=== PATIENT | male | born 1945 | race Caucasian/White ===

== ENCOUNTER 2024-08-10 08:15 | Observation (INO) ==
--- NOTE | 2024-08-03 15:54 | Anesthesiology Consultation ---
Date of Service August 03, 2024 Assessment & Plan (1) Encounter for pre-operative examination: Chart Review Chart Review: Acceptable Risk for Surgery and Patient NOT seen in Pre Admission Testing -Infectious Disease screening: Per PAT nursing assessment on 08/03/24. No known infectious disease contacts in past 10 days or current infectious disease symptoms. No recent travel outside the country. History Surgery Operation Date: 08/10/24 10:00 Proposed Procedures p Laparoscopic Cholecystectomy - Sea Roper MD Height/Weight Height: 5 ft 11 in Weight: 77.111 kg Allergies Allergy/AdvReac Type Severity Reaction Status Date / Time bee venom protein (honey bee) Allergy Severe Anaphylaxis Verified 08/03/24 12:09 adhesive tape Allergy Intermediate Rash Verified 08/03/24 12:10 Iodinated Contrast Media Allergy Intermediate Rash, Hives Verified 08/03/24 12:09 shellfish derived Allergy Intermediate Rash, Hives Verified 08/03/24 12:09 tetanus toxoid, adsorbed Allergy Unknown Unknown Verified 08/03/24 12:09 milk AdvReac Intermediate Gastrointenstinal Verified 08/03/24 12:09 Upset procaine AdvReac Intermediate Nausea Verified 08/03/24 12:09 sulfamethoxazole AdvReac Unknown Unknown Verified 08/03/24 12:09 [From Sulfamethoxazole-Trimethoprim] trimethoprim AdvReac Unknown Unknown Verified 08/03/24 12:09 [From Sulfamethoxazole-Trimethoprim] Additional Notes: Procaine allergy Medications Home Medications Medication Instructions Recorded Confirmed Last Taken carboxymethylcellulose sodium 0.5 1 drp ophthalmic (eye) BID PRN Dry 07/22/24 08/03/24 Unknown % eye drops Eye(S) clobetasol 0.05 % topical cream 1 applic topical DAILY PRN Skin 07/22/24 08/03/24 Unknown Irritation fluocinonide 0.05 % topical cream 1 applic topical BID PRN Skin 07/22/24 08/03/24 Unknown Irritation hydrocortisone 0.5 % lotion 1 applic topical BID PRN Skin 07/22/24 08/03/24 Unknown Irritatoin lactase 3,000 unit tablet (Lactaid) 3,000 unit PO AC PRN Dairy 07/22/24 08/03/24 Unknown Ingestion lysine 500 mg tablet (L-Lysine) 500 mg PO DAILY 07/22/24 08/03/24 Unknown magnesium 250 mg tablet 250 mg PO DAILY 07/22/24 08/03/24 Unknown omeprazole 20 mg capsule,delayed 20 mg PO Q2D 07/22/24 08/03/24 Unknown release sertraline 100 mg tablet (Zoloft) 100 mg PO QDL 07/22/24 08/03/24 Unknown buspirone 10 mg tablet 10 mg PO HS 08/03/24 08/03/24 Unknown multivitamin 1 tab PO QAM 08/03/24 08/03/24 Unknown nortriptyline 10 mg capsule 10 mg PO HS 08/03/24 08/03/24 Unknown vitamins A,C,Y-qiew-skguta 2,148 1 tab PO BID 08/03/24 08/03/24 Unknown mcg-113 mg-45 mg-17.4 mg tablet (PreserVision AREDS) Past Medical History Medical History Adverse effect of anesthesia "Slow to wake up"; "sensitive to medications per patient's Patient concerned with memory loss with anesthesia Cholelithiasis Reason for procedure Depression Diverticular disease incidental finding Hearing loss Bilateral Hearing Aids History of kidney stones passed on own Macular degeneration Neurogenic bladder PTSD (post-traumatic stress disorder) Urinary catheter in place Past Surgical History Surgical History Hx of bilateral cataract extraction Hx of colonoscopy Hx of esophagogastroduodenoscopy Hx of umbilical hernia repair Social History Smoking Status: Never smoker Do You Dip or Chew Tobacco: No Hx Alcohol Use: No Hx Substance Use: No substance use type: does not use Lab Results Anesthesia Preop Results Results Anesthesia Widget: WBC 8.96 K/ul (4.8-10.8) 07/22/24 Hgb 13.1 g/dl (14.0-18.0) L 07/22/24 Hct 37.4 % (42.0-52.0) L 07/22/24 Plt 191 K/uL (130-400) 07/22/24 Na 138 mmol/L (136-145) 07/22/24 K 3.8 mmol/L (3.5-5.1) 07/22/24 Cl 105 mmol/L (98-107) 07/22/24 CO2 26 mmol/L (21-32) 07/22/24 BUN 16 mg/dl (6-23) 07/22/24 Creat 0.99 mg/dl (0.6-1.4) 07/22/24 Glucose Level 121 mg/dl (70-99(Fasting)) H 07/22/24 Testing Electrocardiogram Date: 07/22/24 Findings: + SB @ (45bpm) Otherwise normal EKG per cardio (No physical limitations per PAT nursing interview- no SOB with flight of stairs )
[2024-08-10] MEDS: LR 15ML/HR IV SCH (09:18)
--- OUTSIDE RECORDS SUMMARY | 2024-08-10 09:28 | External Medical Summary | Summary of Care ---
Author Name Unknown Organization [facility] Address [address] [facility] [place] [address] Phone [phone] Care Team Providers Care Rental Sales Associate Name Role Phone Flor Hill MD Primary Care Provide r Reason for Visit * Reason Onset Date Comments Advice 08/05/2024 Encounter Details Date Type Department Care Team (Late st Contact Info) Description 08/05/2024 Telephone General Surgery, [facility] [address] [place] [id number] Sea Stinson MD [address] [place] [id number] Advice Allergies Active Allergy Reactions Criticality Noted Date Comments Bee Venom 12/12/2013 Iodinated Contrast Media Hives 12/12/2013 Lactose Intolerance (Gi) 03/17/2014 Procaine 08/11/2014 Shellfish Allergy 12/12/2013 Tetanus Toxoid Other (Please comment) 12/12/2013 Flu like symptoms Sulfamethoxazole-Trimet hopri 09/25/2018 nausea and emesis documented as of this encounter (statuses as of 08/07/2024) Medications EPIPEN 2-ISIDRO 0.3 MG/0.3ML IJ SOAJ In event of severe reaction: Place orange end against the middle of the outer thigh, then, press firmly and hold in place for 10 seconds. 2 Each 1 4 Active LACTAID 3000 UNITS PO TABS 3 TABLETS WITH A MEAL NEEDED 4 Active LYSINE HCL 500 MG PO TABS 1 TABLET DAILY 4 Active MULTIVITAMINS PO CAPS daily 4 Active MAGNESIUM 250 MG PO TABS one daily Active atorvaSTATin (LIPITOR) 20 MG Tablet Take 1 Tablet by mouth in the morning. 1/2 tab a day. Active Psyllium 58.6 % Oral Powder Take by mouth 3 times a day. One scoop in 8 ounces of water, up to three times a day. As needed 6 Active sertraline (ZOLOFT) 100 MG Tablet Take 1.5 Tablets by mouth in the morning. Active Fluocinonide 0.05 % cream Apply 2x daily (or more if itchy instead of scratching) to rash when flaring until resolved. 30 g 1 7 Active busPIRone (BUSPAR) 5 MG Tablet Take 1 Tablet by mouth at bedtime. Active tamsulosin (FLOMAX) 0.4 MG Capsule Take 1 Cap by mouth daily. 90 Cap 3 9 Active finasteride (PROSCAR) 5 MG TabletIndication s:BPH with obstruction/lowe r urinary tract symptoms,Urine retention Take 1 Tab by mouth daily. 90 Tab 3 9 Active vitamin b 12 (CYANOCOBALAMIN) 1000 MCG TABS Take 1 Tablet by mouth in the morning. Active nortriptyline (PAMELOR) 10 MG Capsule Take 1 Capsule by mouth at bedtime. Active bethanechol (URECHOLINE) 10 MG TABS Take 1 Tablet by mouth in the morning and 1 Tablet at noon and 1 Tablet in the evening and 1 Tablet before bedtime. Active Carboxymethylcel lulose Sod PF 0.5 % Ophthalmic Solution (Refresh Plus) Instill 1 Drop into both eyes daily as needed. Active Clobetasol Propionate 0.05 % External Lotion Apply topically to affected area. Apply to as needed Active Omeprazole Magnesium 20 MG Oral Tablet Delayed Release (PriLOSEC OTC) Take 1 Tablet by mouth in the morning. Active valACYclovir HCl 1 GM Oral Tablet (Valtrex) Take 0.5 Tablets by mouth in the morning and 0.5 Tablets before bedtime. Active Acyclovir 5 % External Ointment (Zovirax)Indicat ions:Genital herpes simplex, unspecified site Apply topically to affected area every 3 hours. 15 g 5 4 Active documented as of this encounter (statuses as of 08/07/2024) Active Problems Problem Noted Date Diagnosed Date Prediabetes 10/28/2023 Overview: Per Prediabetes protocol Gastro-esophageal reflux disease without esophag itis 12/31/2019 Dyslipidemia, goal LDL below 130 12/26/2017 PTSD (post-traumatic stress disorder) 01/04/2016 Genital herpes 08/12/2015 BPH (benign prostatic hyperplasia) Peyronie's disease Atopic dermatitis Diverticulosis documented as of this encounter (statuses as of 08/07/2024) Resolved Problems Problem Noted Date Diagnosed Date Resolved Date Vegetarian 12/26/2017 12/26/2017 Legionnaire's disease 2015 documented as of this encounter (statuses as of 08/07/2024) Immunizations Name Administration Dates Next Due COVID-19 mRNA, LNP-s, No Pre serve, 2-Dose Series (Moderna) 07/26/2020,06/28/2020 Covid-19, Mrna, Lnp-s, Pf, B ivalent, 50 Mcg, IM, 12 yrs and above (Moderna) 04/18/2022 Pneumococcal Conjugate Vacc, 13 Valent (Prevnar) 03/17/2013 Pneumococcal Polysaccharide PPV23 (Pneumovax) 10/27/2010 Seasonal Influenza Vac., MDV , IM, 0.5 mL (Fluzone) 03/17/2016,04/17/2015,06/02/2014 Seasonal Influenza, Quadriva lent, No Preserve, IM 04/20/2020 TD - Tetanus/Diptheria (ADULT) 10/20/2002 Varicella Zoster Vaccine (Adult) 05/19/2010 Zoster Vaccine Recombinant (Shingrix) 10/16/2019 ,08/28/2019 documented as of this encounter Social History Tobacco Use Types Packs/Day Years Used Date Smoking Tobacco: Former Smokeless Tobacco: Never Alcohol Use Standard Drinks/Week Comments Yes 0 (1 standard drink = 0.6 oz pur e alcohol) occasional wine PHQ-2 Answer Date Recorded PHQ-2 Score 0 12/30/2018 Sex and Gender Information Value Date Recorded Sex Assigned at Not on file Legal Sex Male 5:27 AM EST Gender Identity Not on file Sexual Orientation Not on file documented as of this encounter Miscellaneous Notes * Telephone Encounter - Jane Appiah LPN - 08/05/2024 12:50 PM EST Pt calling in and asking if dr stinson is aware that he has a larger navel hernia - pt wondering if that will have any issues with surgery for her gallbladder that is on 08/10/2024. If this will interfere with performing his surgery? Please advise. documented in this encounter Plan of Treatment Upcoming Encounters Date Type Department Care Team (Late st Contact Info) Description 08/10/2024 7:15 AM EST Office Visit [facility], Operating Room, [place] [address] [facility], [place] [address] Sea Stinson MD [address] [place] [address] 08/20/2024 9:45 AM EST Office Visit General Surgery [address] [place] [address] Sea Stinson MD [address] [place] [phone] 08/21/2024 1:40 PM EST Office Visit Family Medicine [address] [place] [phone] Flor Hill MD [address] [place] [address] [place] [address] Health Maintenance Due Date Last Done Comments Hepatitis C Screening 1963 Adult Wellness Visit 10/25/2017 10/25/2016 Depression Screening 12/31/2019 12/30/2018 COVID-19 Vaccine ( season) 2024 03/26/2024, 04/18/2023, 04/18/2022, Additional history exists HbA1c 09/26/2024 09/27/2023, 09/2019, 04/18/2018 Pneumococcal Vaccine: 50+ Years Completed 04/05/2016, 03/17/2013, 10/27/2010 Zoster Vaccines Completed 11/13/2019, 06/2019, 08/28/2019, Additional history exists Influenza Vaccine (FLU shot) Completed 09/2023, 04/20/2020, 04/20/2019, Additional history exists HPV (Gardasil) Vaccine Aged Out No lo nger eligible based on patient's age to complete this topic Hepatitis B Vaccine Aged Out No longe r eligible based on patient's age to complete this topic MENINGOCOCCAL (MENACTRA/MENVEO) Aged Out No longer eligible based on patient's age to complete this topic Meningitis B Vaccine (Bexsero/Trumemba) Aged Out No longer eligible based on patient's age to complete this topic documented as of this encounter Medical Devices Not on filedocumented as of this encounter Care Teams Rental Sales Associate Relationship Specialty Start Date End Date Flor Hill MD [address] [place] [address] [place] [address] PCP - General Family Medicine 08/26/18 documented as of this encounter
--- OUTSIDE RECORDS SUMMARY | 2024-08-10 09:29 | External Medical Summary | Summary of Care ---
Author Name Unknown Organization [facility] Address [address] [facility] [place] [address] Phone [phone] Care Team Providers Care Funeral Home Attendant Name Role Phone Flor Hill MD Primary Care Provide r Reason for Visit * Reason Onset Date Comments Follow Up 07/31/2024 Advice 07/31/2024 Upcoming Encounter Details Date Type Department Care Team (Late st Contact Info) Description 07/31/2024 Telephone General Surgery, [facility] [address] [place] [address] Sea Stinson MD [address] [place] [id number] Follow Up; Advice (Upcoming ) Allergies Active Allergy Reactions Criticality Noted Date Comments Bee Venom 12/12/2013 Iodinated Contrast Media Hives 12/12/2013 Lactose Intolerance (Gi) 03/17/2014 Procaine 08/11/2014 Shellfish Allergy 12/12/2013 Tetanus Toxoid Other (Please comment) 12/12/2013 Flu like symptoms Sulfamethoxazole-Trimet hopri 09/25/2018 nausea and emesis documented as of this encounter (statuses as of 08/04/2024) Medications EPIPEN 2-ISIDRO 0.3 MG/0.3ML IJ SOAJ [...] as of this encounter (statuses as of 08/04/2024) Active Problems Problem Noted Date Diagnosed Date Prediabetes 10/28/2023 Overview: Per Prediabetes protocol Gastro-esophageal reflux disease without esophag itis 12/31/2019 Dyslipidemia, goal LDL below 130 12/26/2017 PTSD (post-traumatic stress disorder) 01/04/2016 Genital herpes 08/12/2015 BPH (benign prostatic hyperplasia) Peyronie's disease Atopic dermatitis Diverticulosis documented as of this encounter (statuses as of 08/04/2024) Resolved Problems Problem Noted Date Diagnosed Date Resolved Date Vegetarian 12/26/2017 12/26/2017 Legionnaire's disease 2015 documented as of this encounter (statuses as of 08/04/2024) Immunizations Name Administration Dates Next Due COVID-19 [...] Telephone Encounter - Jane Appiah LPN - 07/31/2024 11:34 AM EST Called pt today to review his pt teaching for his upcoming surgery at [facility]. Pt saw dr stinson yesterday at [facility]. Pt was given instructions and soap. Patient is scheduled for surgery on 08/10/[address] stinson at [facility] Patient has been instructed to wash with chlorhexidine soap the night before and morning of surgery. Patient has been instructed that they may not have anything to eat or drink the night before surgery. Patient is aware that they need no Preadmission testing. Pt was recently at [facility] for his gallbladder, he ahd an EKG done and Lab work done- did get these faxed here and waiting for them to be scannedinto the chart, I believe they were done last week. Patient is aware that they need a furniture delivery driver to take them home after surgery. Patient is aware that they must hold the following medication prior to surgery. No medications discussed to hold, reminded pt to ask the pre anesthesia about these medications and which ones he needsto hold prior to surgery. Pt and had questions about a overnight cath bag, I stated that if he needs one, that he culd reach out to the hospital that day or she can just bring him with his leg bag for surgery. Noting that the surgery should only be approx 30-45min. No further questions or concerns voiced at this time. Consents placed on schedulers desk to get scanned into the computer and faxed to [facility] documented in this encounter Plan of Treatment Upcoming Encounters Date Type Department Care Team (Late st Contact Info) Description 08/10/2024 7:15 AM EST Office Visit Non [facility], Operating Room, [facility] [address] [facility], [place] [address] Sae Stinson MD [address] [facility] [place] [phone] 08/20/2024 9:45 AM EST Office Visit General Surgery [address] [place] [address] Sea Stinson MD [address] [place] [address] 08/21/2024 1:40 PM EST Office Visit Family Medicine [address] [place] [phone] Flor Hill MD [address] [place] [address] [place] [address] 12/29/2024 9:30 AM EDT Office Visit Urology, [facility] [address] [place] [address] Goran Otoole MD [address] [place] [address] Health Maintenance Due Date Last Done Comments [...] filedocumented as of this encounter Care Teams Funeral Home Attendant Relationship Specialty Start Date End Date Flor Hill MD [address] [place] [address] [place] [address] PCP - General Family Medicine 08/26/18 documented as of this encounter
--- OUTSIDE RECORDS SUMMARY | 2024-08-10 09:29 | External Medical Summary | Summary of Care ---
Author Name Unknown Organization [facility] Address [address] [facility] [place] [address] Phone [phone] Care Team Providers Care Executive Manager Name Role Phone Flor Hill MD Primary Care Provide r Reason for Visit * Reason Onset Date Comments Follow Up 07/31/2024 Advice 07/31/2024 Upcoming Encounter Details Date Type Department Care Team (Late st Contact Info) Description 07/31/2024 Telephone General Surgery, [facility] [address] [place] [address] Sea Stinson MD [address] [place] [id number] Follow Up; Advice (Upcoming ) Allergies Active Allergy Reactions Criticality Noted Date Comments Bee Venom 12/12/2013 Iodinated Contrast Media Hives 12/12/2013 Lactose Intolerance (Gi) 03/17/2014 Procaine 08/11/2014 Shellfish Allergy 12/12/2013 Tetanus Toxoid Other (Please comment) 12/12/2013 Flu like symptoms Sulfamethoxazole-Trimet hopri 09/25/2018 nausea and emesis documented as of this encounter (statuses as of 08/05/2024) Medications EPIPEN 2-ISIDRO 0.3 MG/0.3ML IJ SOAJ [...] as of this encounter (statuses as of 08/05/2024) Active Problems Problem Noted Date Diagnosed Date Prediabetes 10/28/2023 Overview: Per Prediabetes protocol Gastro-esophageal reflux disease without esophag itis 12/31/2019 Dyslipidemia, goal LDL below 130 12/26/2017 PTSD (post-traumatic stress disorder) 01/04/2016 Genital herpes 08/12/2015 BPH (benign prostatic hyperplasia) Peyronie's disease Atopic dermatitis Diverticulosis documented as of this encounter (statuses as of 08/05/2024) Resolved Problems Problem Noted Date Diagnosed Date Resolved Date Vegetarian 12/26/2017 12/26/2017 Legionnaire's disease 2015 documented as of this encounter (statuses as of 08/05/2024) Immunizations Name Administration Dates Next Due COVID-19 [...] Encounter - Jane Appiah LPN - 08/05/2024 2:50 PM EST Called pt to discuss questions and concerns, addressed in another encounter * Telephone Encounter - Tania Kidd OSA - 08/05/2024 11:02 AM EST Patient's called with questions regarding surgery. * Telephone Encounter - Jane Appiah LPN - 07/31/2024 11:34 AM EST Called pt today to review his pt teaching for his upcoming surgery at [facility]. Pt saw dr stinson yesterday at [facility]. Pt was given instructions and soap. Patient is scheduled for surgery on 08/10/[address] [facility] Patient has been instructed to wash with chlorhexidine soap the night before and morning of surgery. Patient has been instructed that they may not have anything to eat or drink the night before surgery. Patient is aware that they need no Preadmission testing. Pt was recently at [facility] for his gallbladder, he ahd an EKG done and Lab work done- did get these faxed here and waiting for them to be scannedinto the chart, I believe they were done last week. Patient is aware that they need a utility worker driver to take them home after surgery. [...] scanned into the computer and faxed to [facility] documented in this encounter Plan of Treatment Upcoming Encounters Date Type Department Care Team (Late st Contact Info) Description 08/10/2024 7:15 AM EST Office Visit [facility], Operating Room, [facility] [address] [facility], [place] [address] Sea Stinson MD [address] [place] [phone] 08/20/2024 9:45 AM EST Office Visit General [place] [address] [place] [address] Sea Stinson MD [address] [place] [address] 08/21/2024 1:40 PM EST Office Visit Family Medicine [address] [place] [phone] Flor Hill MD [address] [place] [address] [place] [address] 12/29/2024 9:30 AM EDT Office Visit Urology, [facility] [address] [place] [address] Goran Otoole MD [address] [place] [address] Health Maintenance Due Date Last Done Comments [...] filedocumented as of this encounter Care Teams Executive Manager Relationship Specialty Start Date End Date Flor Hill MD [address] [place] [address] [place] [address] PCP - General Family Medicine 08/26/18 documented as of this encounter
--- OUTSIDE RECORDS SUMMARY | 2024-08-10 09:29 | External Medical Summary | Summary of Care ---
Author Name Unknown Organization [facility] Address [address] [facility] [place] [address] Phone [phone] Care Team Providers Care Machine Coil Assembler Name Role Phone Flor Hill MD Primary Care Provide r Reason for Visit * Reason Onset Date Comments Advice 08/05/2024 Encounter Details Date Type Department Care Team (Late st Contact Info) Description 08/05/2024 Telephone General Surgery, [facility] [address] [place] [phone] Sea Stinson MD [address] [place] [phone] Advice Allergies Active Allergy Reactions Criticality Noted [...] Office Visit [facility], Operating Room, [place] [address] [address] [facility], [place] [address] Sea Stinson MD [address] [place] [address] 08/20/2024 9:45 AM EST Office Visit General Surgery [address] [place] [address] Sea Stinson MD [address] [place] [address] 08/21/2024 1:40 PM EST Office Visit Family Medicine [address] [place] [phone] Flor Hill MD [address] [place] [address] [place] [address] Health Maintenance Due Date Last Done Comments [...] filedocumented as of this encounter Care Teams Machine Coil Assembler Relationship Specialty Start Date End Date Flor Hill MD [address] [place] [address] [place] [address] PCP - General Family Medicine 08/26/18 documented as of this encounter
--- OUTSIDE RECORDS SUMMARY | 2024-08-10 09:29 | External Medical Summary | Summary of Care ---
Author Name Unknown Organization [facility] Address [address] [facility] [place] [address] Phone [phone] Care Team Providers Care Special Warfare Operator Name Role Phone Flor Hill MD Primary Care Provide r Reason for Visit * Reason Onset Date Comments Surgery 07/27/2024 Encounter Details Date Type Department Care Team (Late st Contact Info) Description 07/27/2024 Telephone General Surgery, [facility] [address] [place] [phone] Sea Roper MD [address] [place] [id number] Surgery Allergies Active Allergy Reactions Criticality Noted Date Comments Bee Venom 12/12/2013 Iodinated Contrast Media Hives 12/12/2013 Lactose Intolerance (Gi) 03/17/2014 Procaine 08/11/2014 Shellfish Allergy 12/12/2013 Tetanus Toxoid Other (Please comment) 12/12/2013 Flu like symptoms Sulfamethoxazole-Trimet hopri 09/25/2018 nausea and emesis documented as of this encounter (statuses as of 07/27/2024) Medications EPIPEN 2-ISIDRO 0.3 MG/0.3ML IJ SOAJ [...] as of this encounter (statuses as of 07/27/2024) Active Problems Problem Noted Date Diagnosed Date Prediabetes 10/28/2023 Overview: Per Prediabetes protocol Gastro-esophageal reflux disease without esophag itis 12/31/2019 Dyslipidemia, goal LDL below 130 12/26/2017 PTSD (post-traumatic stress disorder) 01/04/2016 Genital herpes 08/12/2015 BPH (benign prostatic hyperplasia) Peyronie's disease Atopic dermatitis Diverticulosis documented as of this encounter (statuses as of 07/27/2024) Resolved Problems Problem Noted Date Diagnosed Date Resolved Date Vegetarian 12/26/2017 12/26/2017 Legionnaire's disease 2015 documented as of this encounter (statuses as of 07/27/2024) Immunizations Name Administration Dates Next Due COVID-19 [...] encounter Miscellaneous Notes * Telephone Encounter - Tania Kidd OSA - 07/27/2024 11:08 AM EST Scheduled in on 07/30/24. * Telephone Encounter - Bambi Saldaña OSA - 07/27/2024 10:37 AM EST calling pt ended up in ED with issue from gallbladder states he's ready to have it out would like to set up surgery with . documented in this encounter Plan of Treatment Upcoming Encounters Date Type Department Care Team (Late st Contact Info) Description 07/30/2024 10:15 AM EST Office Visit General Surgery [address] [place] [address] Sea Roper MD [address] [place] [address] 08/21/2024 1:40 PM EST Office Visit Family Medicine [address] [place] [phone] Flor Hill MD [address] [place] [address] [place] [address] 12/29/2024 9:30 AM EDT Office Visit Urology, [facility] [address] [place] [address] Goran Otoole MD [address] [place] [address] Health Maintenance Due Date Last Done Comments Hepatitis C Screening 1963 Adult Wellness Visit 10/25/2017 10/25/2016 Depression Screening 12/31/2019 12/30/2018 HbA1c 09/26/2024 09/27/2023, 09/2019, 04/18/2018 Pneumococcal Vaccine: 50+ Years Completed 04/05/2016, 03/17/2013, 10/27/2010 Zoster Vaccines Completed 11/13/2019, 06/2019, 08/28/2019, Additional history exists Influenza Vaccine (FLU shot) Completed 09/2023, 04/20/2020, 04/20/2019, Additional history exists COVID-19 Vaccine Completed 03/26/2024, 07/2022, 04/18/2022, Additional history exists HPV (Gardasil) Vaccine Aged [...] filedocumented as of this encounter Care Teams Special Warfare Operator Relationship Specialty Start Date End Date Flor Hill MD [address] [place] [address] [place] [address] PCP - General Family Medicine 08/26/18 documented as of this encounter
--- OUTSIDE RECORDS SUMMARY | 2024-08-10 09:29 | External Medical Summary | Summary of Care ---
Author Name Unknown Organization [facility] Address [address] [facility] [place] [address] Phone [phone] Care Team Providers Care Furniture Dipper Name Role Phone Flor Hill MD Primary Care Provide r Reason for Visit * Reason Onset Date Comments Follow Up 07/31/2024 Encounter Details Date Type Department Care Team (Late st Contact Info) Description 07/31/2024 Telephone General Surgery, [facility] [address] [place] [phone] Sea Stinson MD [address] [place] [id number] Follow Up Allergies Active Allergy Reactions Criticality Noted Date Comments Bee Venom 12/12/2013 Iodinated Contrast Media Hives 12/12/2013 Lactose Intolerance (Gi) 03/17/2014 Procaine 08/11/2014 Shellfish Allergy 12/12/2013 Tetanus Toxoid Other (Please comment) 12/12/2013 Flu like symptoms Sulfamethoxazole-Trimet hopri 09/25/2018 nausea and emesis documented as of this encounter (statuses as of 07/31/2024) Medications EPIPEN 2-ISIDRO 0.3 MG/0.3ML IJ SOAJ [...] as of this encounter (statuses as of 07/31/2024) Active Problems Problem Noted Date Diagnosed Date Prediabetes 10/28/2023 Overview: Per Prediabetes protocol Gastro-esophageal reflux disease without esophag itis 12/31/2019 Dyslipidemia, goal LDL below 130 12/26/2017 PTSD (post-traumatic stress disorder) 01/04/2016 Genital herpes 08/12/2015 BPH (benign prostatic hyperplasia) Peyronie's disease Atopic dermatitis Diverticulosis documented as of this encounter (statuses as of 07/31/2024) Resolved Problems Problem Noted Date Diagnosed Date Resolved Date Vegetarian 12/26/2017 12/26/2017 Legionnaire's disease 2015 documented as of this encounter (statuses as of 07/31/2024) Immunizations Name Administration Dates Next Due COVID-19 [...] 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 Pt saw dr stinson yesterday at [facility]. Pt was given instructions and soap. Patient is scheduled for surgery on 08/10/[address] stinson at [facility] Patient has been instructed to wash with chlorhexidine soap the night before and morning of surgery. Patient has been instructed that they may not have anything to eat or drink the night before surgery. Patient is aware that they need no Preadmission testing. Pt was recently at [facility] for his gallbladder, he ahd an EKG done and Lab work done- did get these faxed here and waiting for them to be scannedinto the chart, I believe they were done last week. Patient is aware that they need a cdl truck driver to take them home after surgery. [...] scanned into the computer and faxed to [facility] documented in this encounter Plan of Treatment Upcoming Encounters Date Type Department Care Team (Late st Contact Info) Description 08/20/2024 9:45 AM EST Office Visit General Surgery [address] [place] [address] Sea Stinson MD [address] [place] [address] 08/21/2024 1:40 PM EST Office Visit Family Medicine [address] [place] [phone] Flor Hill MD [address] [place] [address] [place] [address] 12/29/2024 9:30 AM EDT Office Visit Urology, [facility] [address] [facility] [place] [address] Goran Otoole MD [address] [place] [address] Health Maintenance Due Date Last Done Comments [...] filedocumented as of this encounter Care Teams Furniture Dipper Relationship Specialty Start Date End Date Flor Hill MD [address] [place] [address] [place] [address] PCP - General Family Medicine 08/26/18 documented as of this encounter
--- OUTSIDE RECORDS SUMMARY | 2024-08-10 09:29 | External Medical Summary | Summary of Care ---
Author Name Unknown Organization [facility] Address [address] 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 Pt saw dr stinosn yesterday at [facility]. Pt was given instructions and soap. Patient is scheduled for surgery on 08/10/[address] stinson at [facility] Patient has been instructed to wash with chlorhexidine soap the night before and morning of surgery. Patient has been instructed that they may not have anything to eat or drink the night before surgery. Patient is aware that they need no Preadmission testing. Pt was recently at [facility] for his gallbladder, he ahd an EKG done and Lab work done- did get these faxed here and waiting for them to be scannedinto the chart, I believe they were done last week. Patient is aware that they need a warehouse associate driver to take them home after surgery. [...] scanned into the computer and faxed to [facility] documented in this encounter Plan of Treatment Upcoming Encounters Date Type Department Care Team (Late st Contact Info) Description 08/10/2024 7:15 AM EST Office Visit Non [facility], Operating Room, [facility] [address] [place] [facility] [place] [address] Sea Stinson MD [address] [place] [address] 08/20/2024 9:45 AM EST Office Visit General Surgery [address] [place] [address] Sea Stinson MD [address] [place] [address] 08/21/2024 1:40 PM EST Office Visit Family Medicine [address] [place] [phone] Flor Hill MD [address] [place] [address] [place] [address] 12/29/2024 9:30 AM EDT Office Visit Urology, [facility] [address] [place] [address] Goran Otoole MD [address] [place] [address] Health Maintenance Due Date Last Done Comments [...] filedocumented as of this encounter Care Teams Chip Frier Relationship Specialty Start Date End Date Flor Hill MD [address] [place] [address] [place] [phone] PCP - General Family Medicine 08/26/18 documented as of this encounter
--- OUTSIDE RECORDS SUMMARY | 2024-08-10 09:29 | External Medical Summary | Summary of Care ---
Author Name Unknown Organization [facility] Address [address] [facility] [place] [address] Phone [phone] Care Team Providers Care Counter Roller Name Role Phone Flor Hill MD Primary Care Provide r Reason for Visit * Reason Comments Consultation Encounter Details Date Type Department Care Team (Late st Contact Info) Description 07/30/2024 10:15 AM EST Office Visit General Surgery [address] [place] [phone] Sea Roper MD [address] [place] [address] Symptomatic cholelithiasis* Allergies Active Allergy Reactions Criticality Noted Date Comments Bee Venom 12/12/2013 Iodinated Contrast Media Hives 12/12/2013 Lactose Intolerance (Gi) 03/17/2014 Procaine 08/11/2014 Shellfish Allergy 12/12/2013 Tetanus Toxoid Other (Please comment) 12/12/2013 Flu like symptoms Sulfamethoxazole-Trimet hopri 09/25/2018 nausea and emesis documented as of this encounter (statuses as of 07/30/2024) Medications EPIPEN 2-ISIDRO 0.3 MG/0.3ML IJ SOAJ [...] as of this encounter (statuses as of 07/30/2024) Active Problems Problem Noted Date Diagnosed Date Prediabetes 10/28/2023 Overview: Per Prediabetes protocol Gastro-esophageal reflux disease without esophag itis 12/31/2019 Dyslipidemia, goal LDL below 130 12/26/2017 PTSD (post-traumatic stress disorder) 01/04/2016 Genital herpes 08/12/2015 BPH (benign prostatic hyperplasia) Peyronie's disease Atopic dermatitis Diverticulosis documented as of this encounter (statuses as of 07/30/2024) Resolved Problems Problem Noted Date Diagnosed Date Resolved Date Vegetarian 12/26/2017 12/26/2017 Legionnaire's disease 2015 documented as of this encounter (statuses as of 07/30/2024) Immunizations Name Administration Dates Next Due COVID-19 [...] on file documented as of this encounter Last Filed Vital Signs Vital Sign Reading Time Taken Comments Blood Pressure 126/70 07/30/2024 9:57 AM EST Pulse 72 07/30/2024 9:57 AM EST Temperature - - Respiratory Rate 16 07/30/2024 9:57 AM EST Oxygen Saturation 96% 07/30/2024 9:57 AM EST Inhaled Oxygen Concentration - - Weight 77.6 kg (171 lb) 07/30/2024 9:57 AM EST Height - - Body Mass Index 23.52 01/25/2023 10:55 AM EDT documented in this encounter Progress Notes * Sea Roper MD - 07/30/2024 9:59 AM EST [facility] [address] [facility] [place] [address] [facility] Chief Complaint: Chief Complaint Patient presents with Consultation History of Present Illness: Jeffrey Chakraborty is a 78 year old male who has been having right upper quadrant pain. Pain has been present for weeks. The pain does not radiate to the patient's back. The patient does have nausea associated with it. The patient does not have any jaundice associated with it. The pain is made worse by fatty or fried foods. Characteristics of the pain are as follows: Location: RUQ without radiation Quality: dull and pressure Chronicity: Onset week(s) ago, stable since Aggravating factors: fatty foods Alleviating factors: none Associated symptoms: anorexia and nausea Past Medical History Past Medical History: Diagnosis Date Atopic dermatitis BPH (benign prostatic hyperplasia) Closed fracture of one rib of left side with routine healing 06/16/2020 left 6th rib Diverticulosis 05/17/2015 colonoscopy Legionnaire's disease (HCC) Peyronie's disease Shingles Vegetarian Past Surgical History Past Surgical History: Procedure Laterality Date COLONOSCOPY 05/17/2015 diverticulosis; hemorrhoids REMOVE CATARACT, INSERT LENS PROSTH bilateral UMBIL HERNIA REPAIR (REDUCIBLE) AGE 5+YR 2011 Medications: Current Outpatient Medications Medication Sig Dispense Refill EPIPEN 2-ISIDRO 0.3 MG/0.3ML IJ SOAJ In event of severe reaction: Place orange end against the middle of the outer thigh, then, press firmly and hold in place for 10 seconds. 2 Each 1 LACTAID 3000 UNITS PO TABS 3 TABLETS WITH A MEAL NEEDED LYSINE HCL 500 MG PO TABS 1 TABLET DAILY MULTIVITAMINS PO CAPS daily MAGNESIUM 250 MG PO TABS one daily atorvaSTATin (LIPITOR) 20 MG Tablet Take 1 Tablet by mouth in the morning. 1/2 tab a day. Psyllium 58.6 % Oral Powder Take by mouth 3 times a day. One scoop in 8 ounces of water, up to three times a day. As needed sertraline (ZOLOFT) 100 MG Tablet Take 1.5 Tablets by mouth in the morning. Fluocinonide 0.05 % cream Apply 2x daily (or more if itchy instead of scratching) to rash when flaring until resolved. 30 g 1 busPIRone (BUSPAR) 5 MG Tablet Take 1 Tablet by mouth at bedtime. tamsulosin (FLOMAX) 0.4 MG Capsule Take 1 Cap by mouth daily. 90 Cap 3 finasteride (PROSCAR) 5 MG Tablet Take 1 Tab by mouth daily. 90 Tab 3 vitamin b 12 (CYANOCOBALAMIN) 1000 MCG TABS Take 1 Tablet by mouth in the morning. nortriptyline (PAMELOR) 10 MG Capsule Take 1 Capsule by mouth at bedtime. bethanechol (URECHOLINE) 10 MG TABS Take 1 Tablet by mouth in the morning and 1 Tablet at noon and 1 Tablet in the evening and 1 Tablet before bedtime. Carboxymethylcellulose Sod PF 0.5 % Ophthalmic Solution (Refresh Plus) Instill 1 Drop into both eyes daily as needed. Clobetasol Propionate 0.05 % External Lotion Apply topically to affected area. Apply to as needed Omeprazole Magnesium 20 MG Oral Tablet Delayed Release (PriLOSEC OTC) Take 1 Tablet by mouth in themorning. valACYclovir HCl 1 GM Oral Tablet (Valtrex) Take 0.5 Tablets by mouth in the morning and 0.5 Tablets before bedtime. Acyclovir 5 % External Ointment (Zovirax) Apply topically to affected area every 3 hours. 15 g 5 No current facility-administered medications for this visit. Allergies: Allergies as of 07/30/2024 - Reviewed 07/30/2024 Allergen Reaction Noted Bee venom 12/12/2013 Iodinated contrast media Hives 12/12/2013 Lactose intolerance (gi) 03/17/2014 Novocain [procaine] 08/11/2014 Shellfish allergy 12/12/2013 Tetanus toxoid Other (Please comment) 12/12/2013 Trimethoprim-sulfamethoxazole [sulfamethoxazole-trimethoprim] 09/25/2018 Family History Family History Problem Relation Name Age of Onset Eye Problems Mother glaucoma Heart Disorder Father Other (Other [Other]) Father prostate Other (Other [Other]) Brother prostate cancer Social History Social History Socioeconomic History Marital status: Spouse name: Not on file Number of children: Not on file Years of education: Not on file Highest education level: Not on file Occupational History Not on file Tobacco Use Smoking status: Former Smokeless tobacco: Never Vaping Use Vaping status: Never Used Substance and Sexual Activity Alcohol use: Yes Comment: occasional wine Drug use: Not on file Sexual activity: Not on file Other Topics Concern Not on file Social History Narrative Not on file Social Needs Financial Resource Strain: Not on file Food Insecurity: Not on file Transportation Needs: Not on file Social Connections: Not on file Housing Stability: Not on file ROS: GEN: no weight loss, fever, fatigue HEENT: no changes in vision or hearing, no sinus problems, no sore throat, no hoarseness RESPIRATORY: no cough, wheezing, SOB or change in breathing CARDIOVASCULAR: no exertional chest pain, dyspnea, palpitations GI: see HPI , otherwise negative : no dysuria, hematuria, frequency MUSCULOSKELETAL: no change in joint pains, no new arthritis PSYCHIATRIC: no significant anxiety or depression, unchanged sleep pattern HEME: no bleeding tendency, no clotting tendency NEURO: no significant headache, no seizures , no tremors SKIN: no new rashes, no itching Physical Exam: There were no vitals taken for this visit. Constitutional: alert, healthy, well nourished Head: normocephalic, atraumatic Eyes: conjunctiva non-injected, sclera white Ears: pinna normal shape and color Nose: no purulent discharge Mouth: lips, mucosa, and tongue normal Neck: supple, no adenopathy Lungs: clear to auscultation, breath sounds are equal and symmetric Heart: regular rate & rhythm and no murmur, gallops or rubs Abdomen: soft, non-tender Back: normal curvature, normal ROM, no CVA tenderness Extremities: no joint deformities, effusion, or inflammation, no edema, no skin discoloration Neuro: alert, gait normal, motor normal Skin: no obvious rashes or significant lesions Imaging: CT scan with cholelithiasis Lab:LFTs nL Impression: Jeffrey Chakraborty is a 78 year old male with cholelithiasis. I feel that the patient is a good candidate for laparascopic cholecystectomy. Treatment Plan: Laparascopic cholecystectomy without intraoperative cholangiogram. Risks discussed with the patient, including but not limited to: bleeding, infection, conversion to open, injury to the common bile duct, bile leak, retained common bile duct stone requiring ERCP, postoperative diarrhea and intolerance to foods postoperatively. Expected same day nature of surgery and recovery periodreviewed. All of the patient's questions have been answered. Will check CBC, CMP, EKG preoperatively. Will schedule at [facility] in July Sea Roper MD 07/30/2024 10:00 AM documented in this encounter Nursing Notes * Monika Mcleod LPN - 07/30/2024 9:57 AM EST Was in ER d/t pain. Discuss Gallbladder surgery documented in this encounter Plan of Treatment Upcoming Encounters Date Type Department Care Team (Late st Contact Info) Description 08/21/2024 1:40 PM EST Office Visit Family Medicine [address] [place] [address] Flor Hill MD [address] [place] [address] [place] [address] 12/29/2024 9:30 AM EDT Office Visit Urology, [facility] 132 [facility] [place] [address] Goran Otoole MD [address] [place] [address] Health Maintenance Due Date Last Done Comments [...] Not on filedocumented as of this encounter Visit Diagnoses Diagnosis Symptomatic cholelithiasis- Primary Calculus of gallbladder without mention of cholecystitis or obstruction documented in this encounter Care Teams Counter Roller Relationship Specialty Start Date End Date Flor Hill MD [address] [place] [address] [place] [address] PCP - General Family Medicine 08/26/18 documented as of this encounter
--- OUTSIDE RECORDS SUMMARY | 2024-08-10 09:29 | External Medical Summary | Summary of Care ---
Author Name Unknown Organization [facility] Address [address] [facility] [place] [address] Phone [phone] Care Team Providers Care Concrete Stone Finisher Name Role Phone Flor Hill MD Primary Care Provide r Reason for Visit * Reason Comments Consultation Encounter Details Date Type Department Care Team (Late st Contact Info) Description 07/30/2024 10:15 AM EST Office Visit General Surgery [address] [place] [phone] Sea Roper MD [address] [place] [address] Symptomatic cholelithiasis* Allergies Active Allergy Reactions Criticality [...] Roper MD - 07/30/2024 9:59 AM EST [facility] 132 [facility] [place] [address] [facility] Chief Complaint: Chief Complaint Patient presents with [...] CBC, CMP, EKG preoperatively. Will schedule at [facility] in July Sea Roper MD 07/30/2024 10:00 AM documented in this encounter Nursing Notes * Monika Mcleod LPN - 07/30/2024 9:57 AM EST Was in ER d/t pain. Discuss Gallbladder surgery documented in this encounter Plan of Treatment Upcoming Encounters Date Type Department Care Team (Late st Contact Info) Description 08/20/2024 9:45 AM EST Office Visit General Surgery [address] [place] [address] Sea Roper MD 132 [facility] [place] [address] 08/21/2024 1:40 PM EST Office Visit Family Medicine [address] [place] [phone] Flor Hill MD [address] [place] [address] [place] [address] 12/29/2024 9:30 AM EDT Office Visit Urology, [facility] [place] [address] Goran Otoole MD [address] [place] [address] Health Maintenance Due Date Last Done Comments [...] obstruction documented in this encounter Care Teams Concrete Stone Finisher Relationship Specialty Start Date End Date Flor Hill MD [address] [place] [address] [place] [address] PCP - General Family Medicine 08/26/18 documented as of this encounter
--- OUTSIDE RECORDS SUMMARY | 2024-08-10 09:29 | External Medical Summary | Summary of Care ---
Author Name Unknown Organization [facility] Address [address] [facility] [place] [address] Phone [phone] Care Team Providers Care Scholarship Counselor Name Role Phone Flor Hill MD Primary Care Provide r Reason for Visit * Reason Onset Date Comments Advice 08/05/2024 Encounter Details Date Type Department Care Team (Late st Contact Info) Description 08/05/2024 Telephone General Surgery, [facility] [address] [place] [phone] Sea Stinson MD [address] [place] [phone] Advice Allergies Active Allergy Reactions Criticality Noted [...] Office Visit Non [facility], Operating Room, [place] [address] [place] [facility] [place] [address] Sea Stinson MD [address] [place] [address] 08/20/2024 9:45 AM EST Office Visit General Surgery [address] [place] [address] Sea Stinson MD [address] [place] [address] 08/21/2024 1:40 PM EST Office Visit Family Medicine [address] [place] [phone] Flor Hill MD [address] [place] [address] [place] [address] 12/29/2024 9:30 AM EDT Office Visit Urology, [facility] [address] [place] [address] Goran Otoole MD [address] [place] [address] Health Maintenance Due Date Last Done Comments [...] filedocumented as of this encounter Care Teams Scholarship Counselor Relationship Specialty Start Date End Date Flor Hill MD [address] [place] [address] [place] [address] PCP - General Family Medicine 08/26/18 documented as of this encounter
--- OUTSIDE RECORDS SUMMARY | 2024-08-10 09:29 | External Medical Summary | Summary of Care ---
Author Name Unknown Organization [facility] Address [address] [facility] [place] [address] Phone [phone] Care Team Providers Care Utility Bag Assembler Name Role Phone Flor Hill MD Primary Care Provide r Reason for Visit * Reason Comments Consultation Encounter Details Date Type Department Care Team (Late st Contact Info) Description 07/30/2024 10:15 AM EST Office Visit General Surgery [address] [place] [phone] Sea Roper MD [address] [place] [id number] Symptomatic cholelithiasis* Allergies Active Allergy Reactions Criticality [...] Roper MD - 07/30/2024 9:59 AM EST [facility] [address] [facility] [place] [address] [facility] Chief Complaint: Chief Complaint Patient presents with [...] CBC, CMP, EKG preoperatively. Will schedule at [facility] in July Sea Roper MD 07/30/2024 10:00 AM documented in this encounter Nursing Notes * Monika Mcleod LPN - 07/30/2024 9:57 AM EST Was in ER d/t pain. Discuss Gallbladder surgery documented in this encounter Plan of Treatment Upcoming Encounters Date Type Department Care Team (Late st Contact Info) Description 08/20/2024 9:45 AM EST Office Visit General Surgery [address] [place] [id number] Sea Roper MD [address] [facility] [place] [id number] 08/21/2024 1:40 PM EST Office Visit Family Medicine [address] [place] [phone] Flor Hill MD [address] [place] [address] [place] [id number] 12/29/2024 9:30 AM EDT Office Visit Urology, [facility] [address] [facility] [place] [id number] Goran Otoole MD [address] [place] [address] Health Maintenance Due Date Last Done Comments [...] obstruction documented in this encounter Care Teams Utility Bag Assembler Relationship Specialty Start Date End Date Flor Hill MD [address] [place] [address] [place] [id number] PCP - General Family Medicine 08/26/18 documented as of this encounter
--- NOTE | 2024-08-10 09:47 | History & Physical Bridge Note ---
Date of Service August 10, 2024 History & Physical Bridge Note I have examined the patient, reviewed the History & Physical and in the interval since the performance of the History & Physical I have noted the following changes of clinical significance: no changes noted
[2024-08-10] MEDS ORDERED: NALOXONE HCL 0.4 MG/1 ML VIAL/CARP IV PRN (09:48)
[2024-08-10] MEDS ORDERED: ePHEDrine sulfate 50 MG/ML AMP IV PRN (09:48)
[2024-08-10] MEDS ORDERED: ATROPINE SULFATE 0.1 MG/ML 10ML SYR IV PRN (09:48)
[2024-08-10] MEDS ORDERED: PROMETHAZINE HCL 6.25 MG in SODIUM CHLORIDE 0.9% 50 ML IV PRN (09:48)
[2024-08-10] MEDS ORDERED: CISATRACURIUM BESYLATE IV SOLN 2 MG/ML 10 ML VIAL IV ONE (09:52)
[2024-08-10] MEDS ORDERED: PROPOFOL IV EMULSION 10 MG/ML 20 ML VIAL IV ONE (09:52)
[2024-08-10] MEDS ORDERED: fentaNYL citrate PF 100 MCG/2 ML VIAL ONE ×2 (09:53→10:35)
[2024-08-10] MEDS: ceFAZolin 2000MG 2,000 MG/15 ML SYR IV SCH (10:16)
[2024-08-10] MEDS ORDERED: GLYCOPYRROLATE 0.2 MG/ML VIAL ONE ×2 (10:30→10:40)
[2024-08-10] MEDS ORDERED: NEOSTIGMINE METHYLSULFATE 1 MG/ML 10ML VIAL ONE (10:40)
[2024-08-10] MEDS: SURGICEL ABSORB HEMOSTAT 2IN X 14IN TOP ONE (10:51)
[2024-08-10] MEDS: BUPIVACAINE/EPINEPHRINE 0.5% MPF 1:200,000 30 ML VIAL ONE (10:56)
--- NOTE | 2024-08-10 11:03 | Operative Report ---
Post Operative Report Pre & Post Diagnosis Operation Date: 08/10/24 09:45 Symptomatic cholelithiasis I identified the patient and participated in the time-out.: Yes Procedure Operation Date: 08/10/24 09:45 Laparoscopic cholecystectomy Surgeon Sea Roper MD Deicer Tester Apoorva Olmos PA-C Estimated Blood Loss 15 Findings Consistent with Post-Op Diagnosis Specimens Gallbladder to pathology Drains None Anesthesia Type General Complications none Disposition Accompanied Patient To Recovery: No Disposition: Recovery Room Indications This is a 78-year-old male with symptomatic cholelithiasis. We talked to him and recommended a laparoscopic cholecystectomy. He understands the risks and wishes to proceed. Description of Procedure The patient was taken the OR, placed in the supine position and underwent excellent general endotracheal anesthesia. Their abdomen is prepped and draped normal sterile fashion. A transverse supraumbilical incision was made and dissection was taken down to identify the anterior fascia. Two Vicryl sutures were placed on either side of the midline and his midline was then incised. The peritoneal cavity was entered bluntly with [place] clamp. A 12mm Delarosa trocar was then inserted and secured. Good pneumoperitoneum was achieved to 15 mmHg pressure. The patient was placed in head up and rolled to the left position. A 11mm subxiphoid and two 5mm lateral ports were placed in the normal fashion. The gallbladder was identified and was not acutely inflamed. The fundus of the gallbladder was then retracted superiorly. The neck of the gallbladder was grasped and then retracted laterally. This splayed open the Hepatocystic triangle. Attention was then turned to taking down the peritoneal attachments and identify the cystic duct and cystic artery. Once these were skeletonized and a medial and lateral window was created between the gallbladder fossa and the duct, thereby ensuring the critical view. Then three clips were then placed distally on cystic duct one proximally on the cystic duct, it was then transected. Two clips were then placed approximately on the cystic artery one distally, the cystic artery was transected. An electrocautery hook was then used to move the gallbladder off the gallbladder fossa. There was some bile spillage but no stones were spilled. The gallbladder was then placed into an Endobag and brought out through the supraumbilical incision. The pneumoperitoneum was re-established and abdomen was irrigated out until the suction fluid was clear. There were some areas on the gallbladder fossa which were raw whidh were cauterized and then a Surgicel was used to cover the gallbladder fossa. The ports were then removed and the abdomen decompressed. The fascia of the supraumbilical incision was closed with Vicryls. 0.5% Marcaine with epinephrine local was to create a local field block. Interrupted Vicryl was used to close the skin. Dermabond was used to reinforce the incisions. Sterile dressings were applied. Patient tolerated the procedure without complication and sent to the postop recovery period of observation. Apoorva Olmos PA-C was present and participated in the entire procedure. She was integral in skin closure, retraction, and camera manipulation. There was no qualified resident available to assist. I attest to the content of the Intraoperative Record and any orders documented therein. Any exceptions are noted below.
[2024-08-10] MEDS ORDERED: MoRPHine SULFATE 4 MG/ML 1 ML CARP\\VIAL IV PRN (11:04)
[2024-08-10] MEDS ORDERED: MoRPHine SULFATE 2 MG/ML CARP IV PRN ×2 (11:04→17:21)
[2024-08-10] MEDS ORDERED: ONDANSETRON INJ 2 MG/ML 2 ML VIAL IV PRN ×2 (11:04→17:21)
[2024-08-10] MEDS ORDERED: oxyCODONE/ACETAMINOPHEN 5mg/325mg TAB PO PRN (11:04)
[2024-08-10] MEDS: fentaNYL citrate PF 100 MCG/2 ML VIAL IV PRN (11:56)
[2024-08-10] MEDS: oxyCODONE/ACETAMINOPHEN 5mg/325mg TAB PO PRN ×2 (13:00→22:47)
[2024-08-10] MEDS: ONDANSETRON INJ 2 MG/ML 2 ML VIAL IV PRN (13:13)
--- NOTE | 2024-08-10 13:17 | Anesthesiology Progress Note ---
Date of Service August 10, 2024 Anesthesia Post Procedure Vital Signs Vital Signs: Temp Pulse Pulse Resp BP Pulse Ox O2 Del Method 08/10/24 13:00 51 L 18 130/71 95 Room Air 08/10/24 12:30 36.7 C 55 L 18 124/68 93 Room Air 08/10/24 12:20 36.6 C 52 L 18 135/73 96 Room Air 08/10/24 12:10 51 L 16 152/67 H 97 Nasal Cannula 08/10/24 12:00 52 L 12 156/65 H 92 Room Air 08/10/24 11:50 52 L 20 153/66 H 95 Room Air 08/10/24 11:40 50 L 18 162/68 H 99 Room Air 08/10/24 11:30 49 L 20 167/69 H 100 Oxymask 08/10/24 11:20 51 L 22 169/70 H 100 Oxymask 08/10/24 11:13 36 C L 63 20 185/77 H 99 Oxymask 08/10/24 09:02 36.5 C 60 20 143/77 H 100 Room Air O2 Flow Rate 08/10/24 13:00 08/10/24 12:30 08/10/24 12:20 08/10/24 12:10 2 08/10/24 12:00 08/10/24 11:50 08/10/24 11:40 08/10/24 11:30 4 08/10/24 11:20 4 08/10/24 11:13 6 08/10/24 09:02 Pain Intensity Bilateral Lower Back: Pain Intensity: 2 Right Upper Abdomen: Pain Intensity: 6 Transfer of Care Handoff Completed per policy Notes Mental Status: alert / awake / arousable Patient Amnestic to Procedure: Yes Nausea / Vomiting: adequately controlled Pain: adequately controlled Airway Patency, RR, SpO2: stable & adequate BP & HR: stable & adequate Hydration State: stable & adequate Anesthetic Complications: no major complications apparent
[2024-08-10] MEDS: KETOROLAC TROMETHAMINE 15 MG/ML VIAL IV ONE (15:28)
[2024-08-10] MEDS ORDERED: BETAMETHASONE DIP AUG (DIPROLENE) 0.05% CR 15 GM TUBE EXT PRN (17:21)
[2024-08-10] MEDS ORDERED: KETOROLAC TROMETHAMINE 15 MG/ML VIAL IV PRN (17:21)
[2024-08-10] MEDS ORDERED: HYDROCORTISONE 1% CRM 30 GM TUBE EXT PRN (17:21)
[2024-08-10] MEDS ORDERED: LACTASE 3000 UNIT TAB PO PRN (17:21)
[2024-08-10] MEDS ORDERED: ARTIFICIAL TEARS OP PRN (17:21)
[2024-08-10] MEDS ORDERED: CLOBETASOL PROPIONATE 0.05% CREAM 15 GM TUBE TOP PRN (17:21)
[2024-08-10] MEDS: KETOROLAC TROMETHAMINE 15 MG/ML VIAL ONE (17:48)
[2024-08-10] MEDS: NON-FORMULARY MEDICATION (Omeprazole 20 mg Capsule,Delayed Release(Dr/Ec)) PO SCH (17:48)
[2024-08-10] MEDS: busPIRone 5 MG TAB PO SCH (20:33)
[2024-08-10] MEDS: PANTOprazole 40 MG TAB PO SCH (20:33)
[2024-08-10] MEDS: NORTRIPTYLINE HCL 10 MG CAP PO SCH (20:34)
[2024-08-10] MEDS ORDERED: NON-FORMULARY MEDICATION (Vitamins A,C,E-Zinc-Copper [Preservision Areds] 2,148 mcg-113 mg PO SCH (21:00)
[2024-08-10 21:02] VITALS: RESP 16
[2024-08-11] MEDS: MoRPHine SULFATE 2 MG/ML CARP IV PRN (00:22)
[2024-08-11] MEDS: ACETAMINOPHEN 1,000 MG/100 ML VIAL IV PRN (07:49)
[2024-08-11] MEDS: MULTIVITAMIN TAB PO SCH (07:51)
[2024-08-11] MEDS: MAGNESIUM OXIDE 400 MG TAB PO SCH (07:51)
--- NOTE | 2024-08-11 08:46 | Discharge Summary ---
Date of Service August 11, 2024 Admission HPI Per Admitting Provider [id number] with symptomatic cholelithiasis Admission Exam Per Admitting Provider Pulm: B CTA CV: RRR abd: soft , incisions clean and dry ext: MAEW Principal Diagnosis symptomatic cholelithiasis Discharge Exam Constitutional WD/WN, vitals as above Eyes PERRL, conjunctivae normal, anicteric sclerae Neck trachea midline Respiratory normal respiratory effort, lungs clear to auscultation Cardiovascular RRR, no murmur, no edema Gastrointestinal (Abdomen) Inspection/Auscultation: abdomen normal to inspection, + abdomen distended and normal bowel sounds Percussion/Palpation: + abdomen tender and abdomen soft; no guarding and abdomen not rigid Musculoskeletal Head/Neck/Chest: normocephalic and head atraumatic Skin no rashes, warm and dry Discharge Data Allergies Allergy/AdvReac Type Severity Reaction Status Date / Time bee venom protein (honey bee) Allergy Severe Anaphylaxis Verified 08/10/24 08:46 adhesive tape Allergy Intermediate Rash Verified 08/10/24 08:46 Iodinated Contrast Media Allergy Intermediate Rash, Hives Verified 08/10/24 08:46 shellfish derived Allergy Intermediate Rash, Hives Verified 08/10/24 08:46 tetanus toxoid, adsorbed Allergy Unknown Unknown Verified 08/10/24 08:46 milk AdvReac Intermediate Gastrointenstinal Verified 08/10/24 08:46 Upset procaine AdvReac Intermediate Nausea Verified 08/10/24 08:46 sulfamethoxazole AdvReac Unknown Unknown Verified 08/10/24 08:46 [From Sulfamethoxazole-Trimethoprim] trimethoprim AdvReac Unknown Unknown Verified 08/10/24 08:46 [From Sulfamethoxazole-Trimethoprim] Procedures Performed Operation Date: 08/10/24 09:45 Actual Procedures p Laparoscopic Cholecystectomy(Not Applicable) - Sea Roper MD Hospital Course (1) Symptomatic cholelithiasis: Patient underwent uncomplicated lap isabela but had pain and weakness issues post- op. Pain controlled and weakness improved. He is taking po well. Discharge to home POD#1. Total Time Total Time Spent Total Time Spent (In Minutes): 15 Total Time Includes: Examination of the Patient and Discharge Planning Discharge Plan Discharge Items Patient Disposition: Home - Self-Care Reason For Visit: Symptomatic Cholelithiasis Discharge Diagnosis: Cholelithiasis Activity: Per Instructions section Lifting: No more than 25 pounds Bathing: No limitations Bathing Comment: shower Sexual Activity: When tolerated Exercise/Sports: Wait until after follow-up appointment Driving/Machine Use: Resume 3 days after discharge Weightbearing: Full weightbearing Non-emergency contact: Surgeon Call non-emergency contact if: your pain is concerning for you, your temperature is above 101.5 and your wound pain has increased Follow-up/Referrals: Lisa Colon CRNP [Primary Care Provider] - Diet: Regular Addtl Attending Provider Instructions: Post-Surgical ~Discharge Instructions Activity Recommendations: - Lifting limitation: (<20 pounds for 3-4 weeks), - Exercise/sex/sports limit: (nonstrenuous for 2 weeks) - Driving or machine use limit: (none after 3 days post-op as long as pain free and no longer taking narcotic pain medication) - Shower/bathe limit: (may shower tomorrow, no submerging incisions underwater for 2 weeks, Dermabond will peel off in 1-2 weeks) - Call the surgeon's office with any questions or concerns - ; ex. temperature higher than 101.5 degrees F, excessive bleeding or pain Diet: - Resume previous diet, regular as tolerated. Medications: - Resume previous medications unless instructed otherwise by your surgeon. - May alternate extra strength Tylenol and Ibuprofen as needed for mild to moderate pain - Tylenol 650 mg every 6 hours as needed - Ibuprofen 600 mg every 6 hours as needed, take with food - Percocet 1 every 6 hours, as needed for moderate to severe pain. Narcotics may cause nausea on an empty stomach, please eat before taking pain pills - Recommend daily stool softener (Colace) while taking narcotic pain medication to prevent constipation or straining. Drink plenty of water daily. Follow-up: - If not already scheduled, please call the office to schedule a two week follow-up appointment. Office number Pending Studies at Discharge: No Stand-Alone Forms: My [facility] [employer] Medications and DC Order Prescriptions: New oxycodone-acetaminophen [Percocet] 5-325 mg tablet 1 tab PO Q6H PRN (Reason: pain) Qty: 14 0RF Continued multivitamin Tablet 1 tab PO QAM nortriptyline 10 mg capsule 10 mg PO HS buspirone 10 mg Tablet 10 mg PO HS PreserVision AREDS 2,148 mcg-113 mg-45 mg-17.4mg Tablet 1 tab PO BID Rx Instructions: administer with AM and PM meals sertraline [Zoloft] 100 mg Tablet 100 mg PO QDL clobetasol 0.05 % Cream 1 applic TOPICAL DAILY PRN (Reason: Skin Irritation) hydrocortisone 0.5 % Lotion 1 applic TOPICAL BID PRN (Reason: Skin Irritatoin) carboxymethylcellulose sodium 0.5 % Drops 1 drp OPHTHALMIC (EYE) BID PRN (Reason: Dry Eye(S)) lactase [Lactaid] 3,000 unit Tablet 3,000 unit PO AC PRN (Reason: Dairy Ingestion) Rx Instructions: administer with first bite of dairy food omeprazole 20 mg Capsule,Delayed Release(Dr/Ec) 20 mg PO Q2D magnesium 250 mg Tablet 250 mg PO DAILY fluocinonide 0.05 % Cream 1 applic TOPICAL BID PRN (Reason: Skin Irritation) lysine [L-Lysine] 500 mg Tablet 500 mg PO DAILY Discharge Orders: Discharge Order (Routine); Ordered 08/11/24 Ordered By: Sea Martins/Other Patient Handouts: DVT Post Op Prevention Admission Data Admit Date/Time: 08/10/24 15:17 Attending Provider: Sea Roper Admit Provider: Sea Roper Primary Care Provider: Lisa Colon Other Providers: [facility]
[2024-08-11] MEDS ORDERED: NON-FORMULARY MEDICATION (Lysine [L-Lysine] 500 mg Tablet) PO SCH (09:00)
[2024-08-11] MEDS: ONDANSETRON 4 MG OD TAB PO STA (10:37)
[2024-08-11 10:42] VITALS: BP 128/67; PULSE 72; TEMP 97.9; O2SAT 90
[2024-08-11] MEDS ORDERED: SERTRALINE HCL 100 MG TABLET PO SCH (11:30)
== END 2024-08-11 10:59 | disposition home or self-care (01) ==
LOC: 3N 08:15 → ASU 08:15